=== PATIENT | male | born 1970 | race African-American/Black ===

== ENCOUNTER 2017-03-14 13:54 | Emergency (ER) | payer SELFPAY ==
[~2017-03-14] VITALS: Ht 177.8 cm; Wt 85.0 kg
[2017-03-14 13:58] VITALS: BP 128/80
== END 2017-03-14 15:33 | disposition left against medical advice (07) ==
LOC: ER 14:39
DX: R41.82 Altered mental status, unspecified (principal); Z53.21 Procedure and treatment not carried out due to patient leaving prior to being seen by health care provider
CPT/HCPCS: Z7610 ×2